=== PATIENT | male | born 1945 | race Caucasian/White ===

== ENCOUNTER 2020-03-12 12:17 | Emergency (ER) | payer OTHER ==
[~2020-03-12] VITALS: Ht 177.8 cm; Wt 147.0 kg
[2020-03-12] MEDS ORDERED: VICTOZA 2-0.6 MG/0.1 PO (12:30)
[2020-03-12] MEDS ORDERED: LEVOTHYROXINE125 MC1 PO (12:30)
[2020-03-12] MEDS ORDERED: NOVOLOG FL100 UNIT/1 SUBCUTANEO (12:32)
[2020-03-12] MEDS ORDERED: VASCEPA1 GM PO (12:33)
[2020-03-12] MEDS ORDERED: FORTAMET1000 MG PO (12:34)
[2020-03-12] MEDS ORDERED: MYSOLINE50 MG PO (12:35)
[2020-03-12] MEDS ORDERED: KAPSPARGO SPRI100 MG PO (12:35)
[2020-03-12] MEDS ORDERED: VERELAN240 MG PO (12:36)
[2020-03-12] MEDS ORDERED: LASIX40 MG PO (12:36)
[2020-03-12] MEDS ORDERED: FINASTERIDE5 MG PO (12:36)
[2020-03-12] MEDS ORDERED: ELIQUIS5 MG PO (12:37)
[2020-03-12] MEDS ORDERED: MORGIDOX100 MG PO (12:37)
[2020-03-12] MEDS ORDERED: CYMBALTA60 MG PO (12:40)
[2020-03-12] MEDS ORDERED: NOVOLOG100 UNIT/1 SQ (12:40)
[2020-03-12] MEDS ORDERED: ZESTRIL20 MG PO (12:40)
[2020-03-12] MEDS ORDERED: VASCEPA0.5 GM PO (12:41)
[2020-03-12] MEDS ORDERED: TAMS0.4C PO (12:41)
[2020-03-12] MEDS ORDERED: CHILDREN'S ASPI81 MG PO (12:42)
[2020-03-12] MEDS ORDERED: CRESTOR20 MG PO (12:42)
[2020-03-12] MEDS ORDERED: LANTUS SOL100 UNIT/1 SQ (12:43)
[2020-03-12] MEDS ORDERED: NITROSTAT0.4 MG SL (12:43)
[2020-03-12] MEDS ORDERED: PERCOCET 10-321 EACH PO (12:44)
[2020-03-12] MEDS ORDERED: MUPIROCIN15 GM TOP (18:27)
== END 2020-03-12 19:22 | disposition home or self-care (01) ==
LOC: ER 12:17
DX: I87.2 Venous insufficiency (chronic) (peripheral) (principal); R60.0 Localized edema; E11.621 Type 2 diabetes mellitus with foot ulcer; L97.418 Non-pressure chronic ulcer of right heel and midfoot with other specified severity; L03.115 Cellulitis of right lower limb; B95.2 Enterococcus as the cause of diseases classified elsewhere; L03.116 Cellulitis of left lower limb; Z79.4 Long term (current) use of insulin; Z03.818 Encounter for observation for suspected exposure to other biological agents ruled out; I73.9 Peripheral vascular disease, unspecified